=== PATIENT | male | born 1990 | race Caucasian/White ===

== ENCOUNTER 2023-12-19 19:39 | Outpatient (CLI) | payer OTHER ==
--- NOTE | 2023-12-20 12:15 | XRAY Report ---
PROCEDURE: Ribs w/PA Chest 3+V RT INDICATIONS: PNEUMONIA TECHNIQUE: 2 views of the ribs were acquired, along with a single view chest. COMPARISON: None. FINDINGS: Surgical changes and devices: None. Bones and chest wall: No fractures or dislocations. No suspicious bony lesions. Overlying soft tis sues appear unremarkable. Lungs and pleura: No pleural effusions or pneumothorax. Lungs appear clear. Mediastinum: Mediastinal contours appear normal. Heart size is normal. IMPRESSION: No displaced rib fracture or pneumothorax. No acute cardiopulmonary abnormalities. Reviewed by: Manjeet Schaeffer MD on 12/20/2023 12:14 PM PDT Approved by: Manjeet Schaeffer MD on 12/20/2023 12:14 PM PDT Station ID: [id number]
== END 2023-12-19 19:40 | disposition home or self-care (01) ==
LOC: DI 19:39
PROVIDERS: ATTEND Physician Assistant Medical
DX: J18.9 Pneumonia, unspecified organism (principal); R07.81 Pleurodynia

== ENCOUNTER 2024-02-21 08:39 | Outpatient (CLI) | payer OTHER ==
--- NOTE | 2024-02-21 17:41 | XRAY Report ---
PROCEDURE: Ribs w/PA Chest 3+V RT INDICATIONS: FLANK PAIN, RIGHT TECHNIQUE: 3 views of the ribs were acquired, along with a single view chest. COMPARISON: Chest radiograph on December 19, 2023 FINDINGS: Surgical changes and devices: None. Bones and chest wall: No fractures or dislocations. No suspicious bony lesions. Overlying soft tis sues appear unremarkable. Lungs and pleura: No pleural effusions or pneumothorax. Lungs appear clear. Mediastinum: Mediastinal contours appear normal. Heart size is normal. IMPRESSION: 1.No displaced rib fracture or pneumothorax. 2.No acute cardiopulmonary process. Reviewed by: Dulce Maria Yun MD on 02/21/2024 5:40 PM PDT Approved by: Dulce Maria Yun MD on 02/21/2024 5:40 PM PDT Station ID: [id number]
== END 2024-02-21 08:40 | disposition home or self-care (01) ==
LOC: DI.N 08:39
PROVIDERS: ATTEND Physician Assistant
DX: R10.9 Unspecified abdominal pain (principal)